=== PATIENT | female | born 1960 | race Caucasian/White ===

== ENCOUNTER → 2016-09-25 | Day surgery (SDC) | payer OTHER ==
[~2016-09-25] VITALS: Ht 167.6 cm; Wt 98.5 kg
[~2016-09-25] MED LIST: ASPI81TA81; BUPIVACAINE HCL PF 0.5% 30 ML VIAL NB ONE; BUPIVACAINE HCL PF 0.5% 30 ML VIAL ONE; COQ1100C PO; DEXT 5%-NACL 0.45% 1000 ML INJ 1,000 ML IV SCH; DO NOT ADM ANY ANTICOAGULANT DRUGS XX PRN; FAMOTIDINE 20 MG/2 ML VIAL ONE; IBUP800T23 PO; INSULIN HUMAN REGULAR 1,000 UNITS/10 ML VIAL SQ PRN; LACTATED RINGER'S 1000 ML INJ 1,000 ML IV ONE; LACTATED RINGER'S 1000 ML IV SCH; LIPI40TA PO; METOPROLOL TARTRATE 25 MG TAB PO PRN; MIDAZOLAM HCL 5 MG/5 ML VIAL ONE; NORC5TAB PO; ONDANSETRON HCL 4 MG/2 ML VIAL IV PUSH ONE; PHENYLEPH/NS 1000 MCG/10 ML SYR IV ONE; PROPOFOL 200 MG/20 ML AMP IV ONE; QUIN20TA4 PO; SODIUM CHLORID 0.9% 500 ML IV SCH; SODIUM CHLORIDE 0.9% FLUSH 5 ML FLUSH IVF PRN; SODIUM CHLORIDE 0.9% FLUSH 5 ML FLUSH IVF SCH; TOLT1TAB16 PO; VITA1000 PO; ceFAZolin 1,000 MG/NS 100 ML IV SCH; ceFAZolin 2 GM PREMIX 50 ML IV SCH; ePHEDrine/NS 25 MG/5 ML SYR IV ONE
[2016-09-25 08:59] VITALS: BP 137/74; PULSE 64; RESP 18; TEMP 97.8; O2SAT 98
[2016-09-25 09:29] LABS: AUTOMATED NEUTROPHIL # 4.6 TH/MM3 (1.8-7.7); BASOPHIL # 0.1 TH/MM3 (0-0.2); BASOPHIL % 0.9 % (0.0-2.0); EOSINOPHIL # 0.3 TH/MM3 (0-0.4); EOSINOPHIL % 4.5 % (0.0-4.0); HEMATOCRIT 34.3 % (35.0-46.0); HEMO FLAGS DIFF FINAL; LYMPH % 18.4 % (9.0-44.0); LYMPHOCYTE # 1.3 TH/MM3 (1.0-4.8); MEAN CELL VOLUME 81.1 FL (80.0-100.0); MEAN CORPUSCULAR HEMOGLOBIN 27.4 PG (27.0-34.0); MEAN CORPUSCULAR HGB CONC 33.8 % (32.0-36.0); MONO % 10.3 % (0.0-8.0); NEUT % 65.9 % (16.0-70.0); PLATELET COUNT 240 TH/MM3 (150-450); RED BLOOD COUNT 4.23 MIL/MM3 (4.00-5.30); RED CELL DISTRIBUTION WIDTH 16.1 % (11.6-17.2)
--- NOTE | 2016-09-25 11:00 | HP.UPD ---
H&P Update Date: Sep 25, 2016 Note The Pre-Admit History and Physical Examination regarding the above named patient was reviewed (including, but not limited to, vital signs, medications, allergies, co-morbid conditions), and upon re-examination it is noted that: Indicated with "X" x - the patient's condition has not significantly changed since the last examination. [] - the patient's condition has changed since the last examination. Changes: Lynn Clemens MD Sep 25, 2016 11:00
--- NOTE | 2016-09-25 13:40 | EKG ---
Date Performed: 09/25/2016 Time Performed: 08:49:50 PTAGE: 55 years EKG: SINUS BRADYCARDIA BORDERLINE ECG NO PREVIOUS TRACING DOCTOR: Suellen Mcdonough Interpretating Date/Time 09/25/2016 13:35:15
--- NOTE | 2016-09-25 13:43 | HHI.PR ---
Immediate Post Op Note Procedure Date: Sep 25, 2016 Pre Op Diagnosis: (1) Primary localized osteoarthrosis, hand Post Op Diagnosis: (1) Primary localized osteoarthrosis, hand Surgeon: Lynn Clemens Phlebotomy Coordinator(s): None Procedure: Interposition arthroplasty of the right thumb CMC joint. Tendon transfer to the right thumb CMC joint. Anesthesia: General Drains: None Tourniquet time (min at mmHg) 77 minutes at 220 mmHg Patient to: PACU Patient Condition: Good Date/Time of Procedure: SEE SURGICAL CARE RECORD Lynn Clemens MD Sep 25, 2016 13:43
[2016-09-25 14:47] VITALS: BP 120/65; PULSE 68; RESP 17; TEMP 97.6; O2SAT 98
--- NOTE | 2016-09-28 08:20 | MP ---
cc: JASMINE HOGAN M.D. 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 PROCEDURE 1. Interposition arthroplasty of right thumb CMC joint. 2. Tendon transfer to the right thumb CMC joint. ANESTHESIA General SURGEON Jasmine Hogan MD INDICATIONS A 55-year-old female with severe degenerative joint disease of the right thumb CMC joint. The patient the pain was chronic and severe for approximately a year. FINDINGS There was significant loss of joint space and cartilage. At the completion of the procedure the carpal trapezium had been removed and interposition effected using a portion of the flexor carpi radialis. TOURNIQUET TIME 77 minutes. PROCEDURE The patient was seen preoperatively where the site and side were identified and marked. The patient was then taken to the operating room, placed in a supine position. Her identity was checked against the arm band and the consent form, site and side confirmed, time-out called prior to beginning the procedure. The right upper extremity was prepped with Hibiclens and draped in the usual sterile fashion. The area to be incised was outlined with a marking pen as a transverse incision at the dorsal base of the right thumb at the CMC joint. An additional incision was designed in the most distal volar portion of the flexor carpi radialis in the wrist and 9 cm proximal to this. The arm was then exsanguinated and the tourniquet inflated to 220 mmHg. A #15 blade was then used make the incision over the thumb, down through the skin, down to the subcutaneous tissue. Under loupe magnification using sharp and blunt dissection, superficial vessels and nerves were identified and retracted. Extensor tendons were identified and retracted exposing the capsule of the CMC joint. It was then opened and using sharp and blunt dissection the carpal trapezium was removed in piecemeal with a rongeur identifying the flexor carpi radialis. A 4-mm hole was then drilled obliquely from the dorsal aspect of the thumb metacarpal into the joint approximately 2 cm distal to the base. This was done using sequentially larger drill bits. The whole area was then copiously irrigated with saline. Attention was then turned to the volar aspect of the wrist where a transverse incision was made at the most distal volar portion of the flexor carpi radialis in the wrist and 9 cm proximal to this. The incisions were made down through the skin, down to the subcutaneous tissue. Using sharp and blunt dissection in both areas the tendon was identified. The sheath was opened proximally and distally at the distal one and distally to proximal one. The tendon was isolated from the muscle mass and this was just distal to the musculotendinous junction. The ulnar 50% was divided. The tendon passer was then passed from distal to proximal and using the tendon passer the tendons were stripped distally. Another clamp was then placed from the original incision into the incision over the flexor carpi radialis and the tendon was passed through this way, the fibers then carefully all the way to the insertion, into the base of the index metacarpal. Using a Hewson passer, the tendon was then passed through the thumb metacarpal which was then adducted against the index metacarpal and pulled distally. It was then stitched to itself and the remainder was then wrapped around the vertical portion of the flexor carpi radialis portion. The area was then checked. Excellent stability was noted. the capsule was then closed with 3-0 Ethibond suture material. The wounds were closed with 4-0 Vicryl to the proximal and distal ones. Once they were approximated, the wounds were closed with Dermabond. Once the glue had dried in several layers, Steri-Strips were applied and then after 77 minutes the tourniquet was released. Pressure was applied. After several minutes there was no evidence of any oozing. A dressing was applied using fluffy gauze, hand wrap and a thumb spica splint. The patient was then taken from the operating room to the recovery room in satisfactory condition having tolerated the procedure well. Postoperative instructions include keeping the arm elevated, keeping the area clean and dry and returning next week for followup. MD MARIPOSA Gold/ADENIKE /1:46 PM /8:00 AM
== END | disposition home or self-care (01) ==
LOC: HSDC 08:11
PROVIDERS: ATTEND Specialist
DX: M18.11 Unilateral primary osteoarthritis of first carpometacarpal joint, right hand (principal); R00.1 Bradycardia, unspecified
CPT/HCPCS: 01810; 01830; 25310; 25447; 64450; 85025; 93005; J0690; J2250; J2370; J2405; J3010; J7120